=== PATIENT | female | born 1975 | race Caucasian/White ===

== ENCOUNTER 2017-05-03 15:23 | Emergency (ER) | payer BC, MEDICAID ==
[~2017-05-03] VITALS: Ht 157.5 cm; Wt 51.0 kg
[2017-05-03 15:25] VITALS: Ht 157.5 cm; Wt 51.0 kg
--- NOTE | 2017-05-03 18:32 | RADRPT ---
PROCEDURE: Ultrasound of the right hand CLINICAL INDICATION: Palpable lump TECHNIQUE: Sonographic evaluation of the right hand was performed. Marie scale and color imaging w as performed in the sagittal and coronal planes. Images were reviewed on a high-resolution PACS wor kstation. COMPARISON: None available FINDINGS: Focused ultrasound was performed in the area of the palpable abnormality at the dorsal aspect of the base of the first metacarpal. Normal appearing subcutaneous fat, muscle and connective tissue were seen. No mass lesion was identified. Ovoid well-circumscribed hypoechoic cyst is identified with internal debris, measuring 1.6 x 0.5 x 1 .2 cm No lymphadenopathy was identified. IMPRESSION: 1. 1.6 cm subcutaneous cyst with internal debris in the area of palpable abnormality. Differential diagnosis includes ganglion cyst, hematoma and abscess, favoring ganglion cyst. RPTAT: QQ .Johnnie Mckinney MD, Date Time Electronically viewed and signed by .Johnnie Mckinney MD, on 05/03/2017 18:31 .M/
--- NOTE | 2017-05-03 18:38 | ERD ---
ER Documentation Chief Complaint Date/Time DATE: 05/03/17 TIME: 18:33 Chief Complaint right wrist pain x 1 week HPI Patient is a 41-year-old female here with who presents the ED with right swelling to her wrist. She states that she has had a small bump on her right wrist for the last 2 years however she states that in the last week it has gotten larger and more painful. She denies trauma. She denies drug use. She denies falls or injuries. 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 She states that she went to the urgent care today and was given ibuprofen. She has not seen a hand specialist for this. No other complaints. Denies chest pain, cough or shortness of breath. Denies recent travel or recent injury or recent surgery. ROS All systems reviewed and are negative except as per history of present illness. Allergies Allergies: Coded Allergies: No Known Drug Allergy (Unverified Allergy, Unknown, 10/02/07) PMhx/Soc Medical and Surgical Hx: pt denies Medical Hx History of Surgery: No Anesthesia Reaction: No Hx Neurological Disorder: No Hx Respiratory Disorders: No Hx Cardiac Disorders: No Hx Psychiatric Problems: No Hx Miscellaneous Medical Probl: No Hx Alcohol Use: No Hx Substance Use: No Hx Tobacco Use: No Smoking Status: Never smoker Physical Exam Vitals Vital Signs Date Time Temp Pulse Resp B/P Pulse Ox O2 Delivery O2 Flow Rate FiO2 05/03/17 15:25 98.6 97 16 160/68 99 Physical Exam GENERAL: Well-developed, well-nourished female. Appears in no acute distress. NECK: Supple. No lymphadenopathy or thyromegaly. No meningismus. negative kernig. negative brudinski. LUNG: Clear to auscultation bilaterally. No rhonchi, wheezing, rales or coarse breath sounds. HEART: Regular rate and rhythm. No murmurs, rubs or gallops. ABDOMEN: No scars, ecchymosis or rashes noted. Soft, nontender, and nondistended. Positive bowel sounds in all four quadrants. No rebound tenderness , no guarding. (-) McBurneys point tenderness. No CVA tenderness. BACK: No midline tenderness. Extremities: Equal pulses bilaterally. No peripheral clubbing, cyanosis or edema. No unilateral leg swelling. 2 x 1 cystlike lesion on the radial edge of the carpals. Palpable and non-mobile. NEUROLOGIC: Alert and oriented. Moving all four extremities. 5/5 strength in all extremities. Normal speech. Steady gait. SKIN: Normal color. Warm and dry. No rashes or lesions. Capillary refill < 2 seconds Procedures/MDM ER COURSE: I kept the patient and/or family informed of laboratory and diagnostic imaging results throughout the emergency room course. MEDICAL DECISION MAKING: This is a 41-year-old female who presents with right wrist pain and mass. Vital signs were reviewed. Patient is afebrile. Patient is not hypoxic. Patient is not toxic or ill-appearing. I consulted with my supervising physician Dr. Beard who came to examine patient at bedside. And agrees with my medical decision making and discharge plans. An ultrasound here in the ED was done which showed a 1.6 cm subcutaneous cyst with internal debris in the area of palpable abnormality. Differential diagnosis includes ganglion cyst, hematoma and abscess, fever and ganglion cyst. Low suspicion for necrotizing fasciitis, SJS, toxic epidermal necrolysis, Kawasaki, erythema multiforme, gangrene, scarlet fever, meningococcemia, sepsis, anaphylaxis, sepsis, deep space infection, or foreign body. Low suspicion for DVT, PE, clot. Low suspicion for ACS, PE, AAA, dissection, DVT DISCHARGE: At this time, patient is stable for discharge and outpatient management with no new complaints during the ER course. Patient was sent home with copy of imaging studies, Naprosyn and to follow-up with hand specialist. Patient will be discharged home with instructions to recheck for new or worsening symptoms such as fever, nausea, weakness, LOC and to follow up with primary care in the next 1 -2 days. Patient was advised to return to the ER for any new or worsening symptoms. Plan was discussed and patient and/or family understands and agrees. Home instructions were given. Departure Diagnosis: Primary Impression: Subcutaneous cyst Condition: Stable KELSEY UPTON PA-C May 03, 2017 18:37
[2017-05-03] MEDS ORDERED: NAPR-260 PO (18:39)
[2017-05-03 18:59] VITALS: BP 147/65; PULSE 71; RESP 16; TEMP 98.1
== END 2017-05-03 18:59 | disposition home or self-care (01) ==
LOC: FTE 15:23
DX: B43.2 Subcutaneous pheomycotic abscess and cyst (principal)
CPT/HCPCS: 76536; Z7502